=== PATIENT | male | born 1990 | race Caucasian/White ===

== ENCOUNTER 2017-01-17 02:20 | Emergency (ER) | payer BC ==
[~2017-01-17] VITALS: Ht 193 cm; Wt 74.8 kg
[2017-01-17 02:46] VITALS: BP_SYST 149
[2017-01-17] MEDS ORDERED: FLUORESCEIN SODIUM 1 MG OPHTHALMIC STRIP OP ONE (03:30)
[2017-01-17 04:19] VITALS: BP_SYST 135
== END 2017-01-17 04:19 | disposition home or self-care (01) ==
LOC: SED 02:20
DX: H10.89 Other conjunctivitis (principal); B96.89 Other specified bacterial agents as the cause of diseases classified elsewhere
CPT/HCPCS: 99283